=== PATIENT | female | born 1990 | race Caucasian/White ===

== ENCOUNTER 2022-08-11 12:10 | Inpatient (IN) ==
[2022-08-11] MEDS ORDERED: OXYTOCIN 30 UNITS/500 ML BAG IV PRN ×3 (14:55→20:32)
[2022-08-11] MEDS ORDERED: LIDOCAINE 1% LOCAL 20 ML VIAL INFIL PRN (14:55)
[2022-08-11 15:23] LABS: Hematocrit (blood only) 34.6 % (34.1-44.9); Hemoglobin 12.2 g/dl (12.0-16.0); Mean Corpuscular Hemoglobin 32.5 pg (25.0-34.0); Mean Corpuscular Hgb Conc 35.3 g/dL (32.0-36.0); Mean Corpuscular Volume 92.3 fL (80.0-100.0); Mean Platelet Volume 10.9 fL (9.4-12.3); Platelet Count 291 K/uL (130-400); RDW Coefficient of Variation 12.8 % (11.5-14.5); RDW Standard Deviation 43.3 fL (36.4-46.3); Red Blood Count 3.75 M/uL (3.93-5.22)
[2022-08-11] MEDS: LACTATED RINGER'S 1,000 ML IV PRN ×2 (15:37→17:40)
[2022-08-11] MEDS ORDERED: ePHEDrine sulfate 50 MG/ML AMP ONE (17:14)
[2022-08-11] MEDS ORDERED: fentaNYL 2MCG/ML ROPIVACAINE 1.25MG/ML 100 ML BAG EPI ONE (17:15)
[2022-08-11] MEDS ORDERED: LIDOCAINE 2%/EPINEPHRINE 1:200,000 20 ML SDV ONE (17:15)
[2022-08-11] MEDS ORDERED: BUPIVACAINE 0.25% 30 ML VIAL ONE (17:15)
[2022-08-11] MEDS ORDERED: fentaNYL citrate 100 MCG/2 ML VIAL ONE (17:15)
[2022-08-11] MEDS ORDERED: SODIUM CHLORIDE 0.9% INJ 10 ML VIAL ONE (17:15)
[2022-08-11] MEDS ORDERED: NALOXONE HCL 1 MG in SODIUM CHLORIDE 0.9% 1000ML 1,000 ML IV PRN (18:15)
[2022-08-11] MEDS ORDERED: fentaNYL 2MCG/ML ROPIVACAINE 1.25MG/ML 100 ML BAG EPI PRN (18:15)
[2022-08-11] MEDS ORDERED: NALOXONE HCL 0.4 MG/1 ML VIAL/CARP IV PRN (18:15)
[2022-08-11] MEDS ORDERED: NALBUPHINE HCL INJ 10 MG/ML AMP IV PRN (18:15)
[2022-08-11] MEDS ORDERED: ePHEDrine sulfate 50 MG/ML AMP IV PRN (18:15)
[2022-08-11] MEDS ORDERED: diphenhydrAMINE 50 MG/ML VIAL IV PRN (18:15)
[2022-08-11] MEDS ORDERED: ONDANSETRON INJ 2 MG/ML 2 ML VIAL IV PRN (18:15)
--- NOTE | 2022-08-11 18:15 | Anesthesiology Consultation ---
Date of Service August 11, 2022 Assessment & Plan Chart Review Chart Review: Patient NOT seen in Pre Admission Testing and Acceptable Risk for Labor Epidural Consults Requested none ASA ASA2 Proposed Anesthesia Anesthesia Type: Labor Epidural Risk / Benefits Reviewed With: PT / POA / Parent / Guardian, Accepts Plan and Informed Consent Obtained History Height/Weight Height: 5 ft 3 in Weight: 89.358 kg Allergies Allergy/AdvReac Type Severity Reaction Status Date / Time cefaclor [From [facility]] Allergy Verified 08/08/22 13:26 Medications Home Medications Medication Instructions Recorded Confirmed Last Taken cetirizine 10 mg tablet (Zyrtec) 10 mg PO DAILY PRN Allergic 12/26/20 08/11/22 08/11/22 Symptoms [id number] See Rx Instructions .Route .COMPLEX 06/03/22 08/11/22 08/11/22 Active Medications Generic Name Dose Route Start Last Admin Trade Name Freq PRN Reason Stop Dose Admin Lactated Ringer's 1,000 mls @ 125 mls/hr 08/11/22 14:55 08/11/22 18:03 Lr IV 08/13/22 14:54 125 mls/hr .Q8H PRN Infusion L&D Protocol Protocol Oxytocin 30 units in 500 mls @ 5 mls/hr 08/11/22 14:55 08/11/22 17:00 Pitocin IV 08/13/22 14:54 0.3 units/hr .Q24H PRN 5 mls/hr Labor Induction/Augmentation Titration Protocol 0.3 UNITS/HR Past Medical History Medical History (Updated 06/03/22 @ 12:58 by Norbert Bass MD) Angioedema "unexplained face swelling" x1 episode, no explanation as yet History of chicken pox 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 - second opinion disagreed, symptoms resolved Status post therapeutic Exercise / Class Metabolic Activity II 4-5 Yardwork/Stairs/Walk up hill Past Family History Family History Father Prostate cancer Grandfather (Paternal) Prostate cancer Grandmother (Maternal) Hypertension Clotting disorder Family/Other Ankylosing spondylitis Denies family history of Ovarian cancer Myocardial infarction Breast cancer Lung cancer Colorectal cancer Past Surgical History Surgical History [place] teeth removed Past Anesthesia History No Hx of Anesthesia Complications and No Family Hx of Anesthesia Complications History of PONV No Hx of PONV and No Hx of Motion Sickness Social History Smoking Status: Never smoker Hx Alcohol Use: No Hx Substance Use: No substance use type: does not use Physical Exam Vital Signs Last Vital Signs Temp 36.7 C 08/11/22 13:52 Pulse 76 08/11/22 18:13 Resp 20 08/11/22 16:21 BP 149/88 H 08/11/22 18:13 Pulse Ox 100 08/11/22 18:13 ENMT Mouth: no dentition abnormality Thyromental Distance: > or= 3.5 Finger Breadths Mallampati Class: II Neck normal visual inspection Respiratory normal respiratory effort Auscultation: lungs clear to auscultation bilaterally Cardiovascular Rate/Rhythm: regular rate and regular rhythm Psychiatric Orientation: alert Testing Laboratory Results 08/11/22 15:02
[2022-08-11] MEDS ORDERED: METHYLERGONOVINE MALEATE 0.2 MG/ML AMP ONE (19:46)
[2022-08-11] MEDS ORDERED: miSOPROStoL 200 MCG TAB ONE (19:46)
[2022-08-11] MEDS ORDERED: bisacodyL 10 MG SUPP PR PRN (20:32)
[2022-08-11] MEDS ORDERED: HYDROCORTISONE ACETATE 25 MG SUPP PR PRN (20:32)
[2022-08-11] MEDS ORDERED: miSOPROStoL 200 MCG TAB PR ONE (20:32)
[2022-08-11] MEDS ORDERED: BENZOCAINE 20% AER SPR 82.5 GM CAN EXT PRN (20:32)
[2022-08-11] MEDS ORDERED: DIPHTHERIA/TETANUS/PERTUSSIS 0.5 ML SYR/VIAL IM ONE (20:32)
[2022-08-11] MEDS: IBUPROFEN 600 MG TAB PO PRN (21:12)
[2022-08-11] MEDS: DOCUSATE SODIUM 100 MG CAP PO SCH (21:12)
--- NOTE | 2022-08-11 21:20 | Anesthesia Procedure Note ---
Date of Service August 11, 2022 Anesthesia Post Epidural Note Vital Signs Vital Signs: Temp Pulse Resp BP Pulse Ox 36.5 C 68 20 133/82 93 08/11/22 19:15 08/11/22 21:04 08/11/22 21:05 08/11/22 21:04 08/11/22 19:37 Pain Intensity Bilateral Abdomen: Pain Intensity: 3 Notes Mental Status: alert / awake / arousable Nausea / Vomiting: adequately controlled Pain: adequately controlled Airway Patency, RR, SpO2: stable & adequate BP & HR: stable & adequate Hydration State: stable & adequate Neuraxial Anesthesia: was administered and sensory block is resolving Anesthetic Complications: no major complications apparent and Pt Satisfied with anesthetic care Epidural: Removed without complications and With tip intact
--- NOTE | 2022-08-11 21:36 | Delivery Summary ---
PROCEDURE: Normal spontaneous vaginal delivery with second-degree perineal laceration repair. SURGEON: Norbert Bass MD. PREOPERATIVE DIAGNOSES: 1. Single intrauterine at 41 weeks and 1 day gestational age. 2. Postdates induction of labor. POSTOPERATIVE DIAGNOSES: 1. Single intrauterine at 41 weeks and 1 day gestational age. 2. Postdates induction of labor. 3. Status post procedure. ESTIMATED BLOOD LOSS: 400 mL. DRAINS: Straight cath at the completion of the case. URINE OUTPUT: Per straight cath. COMPLICATIONS: None. FINDINGS: Viable female with weight and Apgars pending. The patient was noted to have a Bar tholin's gland cyst at the time of repair. The cyst did have to be decompressed to allow for repair of the second-degree perineal laceration. DESCRIPTION OF THE PROCEDURE: The patient progressed to 10 cm dilated, 100% effaced, positive 2-3 st ation, pushed over intact perineum with epidural anesthesia and delivered a viable female infant with weight and Apgars pending. Head of the delivered in YANELY position, restituted right transver se. There was noted to be a posterior compound hand, which was delivered, remaining body and shoulde rs quickly followed. was noted to be vigorous soon after delivery and a 1 minute delayed cor d clamping was initiated. Cord was then double clamped and cut. remained on maternal abdome n. Cord blood was obtained. Attention was then turned to delivery of the placenta, which was delive red intact, 3-vessel cord, gentle cord traction. On inspection of the perineum, vagina, cervix, ther e was noted to be a second-degree perineal laceration as well as a left-sided Bartholin gland cyst ap proximately 1.5 cm to 2 cm in size. The patient was unaware of the Bartholin gland cyst prior to the procedure. The patient was noted to have moderately heavy bleeding and uterine massage was continue d and the patient was straight cathed. Bleeding did improve and the second-degree perineal laceratio n was repaired with traditional crown stitch after decompression of the Bartholin gland cyst to allow for repair of the second-degree. After the second-degree was repaired, the Bartholin gland cyst was noted to be decompressed and was not overly noticeable. The 800 mcg of Cytotec were placed per rectum due to the couple episodes of bleeding following delivery. Both mother and were stable in t he immediate post-delivery period. Job ID: [id number]
[2022-08-11] MEDS: ACETAMINOPHEN 325 MG TAB PO PRN (23:47)
[2022-08-12] MEDS: IBUPROFEN 600 MG TAB PO PRN ×5 (01:20→21:34)
--- NOTE | 2022-08-12 07:03 | Obstetrical Progress Note ---
Date of Service <Regina Mora MD - Last Filed: 08/12/22 08:14> August 12, 2022 Assessment & Plan <Regina Mora MD - Last Filed: 08/12/22 08:14> (1) care following vaginal delivery: 32 y/o at 40+ presented for IOL now PPD1. GBS neg. Rubella immune. A+. Satisfactory progress. Encourage ambulation. Tolerating PO. <Norbert Bass MD - Last Filed: 08/13/22 08:45> (1) care following vaginal delivery: Subjective <Regina Mora MD - Last Filed: 08/12/22 08:14> Ambulation: ambulating normally Voiding: no voiding problems Passing Gas:: Yes Diet Tolerance:: regular diet Lochia:: Small Feeding Type:: breast feeding no f/c/CP/SOB/calf pain Physical Exam <Regina Mora MD - Last Filed: 08/12/22 08:14> Constitutional WD/WN, vitals as above Respiratory normal respiratory effort, lungs clear to auscultation Cardiovascular RRR, no murmur, no edema Extremities: no calf tenderness Psychiatric A+Ox3, euthymic affect Genitourinary OB Exam Abdomen: + fundal height (at the level of the umbilicus) Fundus: + firm Results & Data ([facility]) <Regina Mora MD - Last Filed: 08/12/22 08:14> Vital Signs (Past 12 Hours) Vital Signs Temp Pulse Pulse Resp BP BP Pulse Ox 08/12/22 03:00 36.8 C 72 18 144/94 H 99 08/11/22 22:30 36.9 C 75 18 126/85 98 08/11/22 21:35 88 18 140/71 08/11/22 21:05 20 08/11/22 20:35 20 08/11/22 19:15 36.5 C 08/11/22 20:20 18 08/11/22 20:05 18 08/11/22 19:50 20 08/11/22 19:35 20 08/11/22 21:34 88 140/71 08/11/22 21:19 90 123/73 08/11/22 21:04 68 133/82 08/11/22 20:49 73 146/75 H 08/11/22 20:35 79 132/74 08/11/22 20:19 63 142/67 H 08/11/22 20:04 75 121/76 08/11/22 19:52 88 150/76 H 08/11/22 19:37 89 93 08/11/22 19:34 69 129/77 08/11/22 19:33 75 100 08/11/22 19:28 80 100 08/11/22 19:23 89 100 08/11/22 19:22 78 135/79 08/11/22 19:18 78 100 08/11/22 19:13 101 H 100 08/11/22 19:08 156 H 100 08/11/22 19:07 76 145/81 H 08/11/22 19:03 99 H 100 O2 Del Method 08/12/22 03:00 Room Air 08/11/22 22:30 Room Air 08/11/22 21:35 08/11/22 21:05 08/11/22 20:35 08/11/22 19:15 08/11/22 20:20 08/11/22 20:05 08/11/22 19:50 08/11/22 19:35 08/11/22 21:34 08/11/22 21:19 08/11/22 21:04 08/11/22 20:49 08/11/22 20:35 08/11/22 20:19 08/11/22 20:04 08/11/22 19:52 08/11/22 19:37 08/11/22 19:34 08/11/22 19:33 08/11/22 19:28 08/11/22 19:23 08/11/22 19:22 08/11/22 19:18 08/11/22 19:13 08/11/22 19:08 08/11/22 19:07 08/11/22 19:03 <Norbert Bass MD - Last Filed: 08/13/22 08:45> Co-Signing Physician Notes patient seen and evaluated with resident and agree with the above findings and plan. Routine care Resident Activity Tracking <Regina Mora MD - Last Filed: 08/12/22 08:14> Resident Involvement: Resident Care Provided Care Provided: OB Delivery
[2022-08-12 07:06] LABS: Hematocrit (blood only) 31.7 % (34.1-44.9); Hemoglobin 11.1 g/dl (12.0-16.0)
[2022-08-12] MEDS: FERROUS SULFATE 325 MG TAB PO SCH (07:52)
[2022-08-12] MEDS: DOCUSATE SODIUM 100 MG CAP PO SCH ×2 (07:52→19:34)
[2022-08-12] MEDS: CETIRIZINE HCL 10 MG TABLET PO SCH (07:52)
[2022-08-12] MEDS: PRENATAL VITAMIN 1 TAB PO SCH (07:52)
[2022-08-12] MEDS: ACETAMINOPHEN 325 MG TAB PO PRN ×3 (07:52→19:34)
[2022-08-12] MEDS ORDERED: bisacodyL 5 MG TABEC PO SCH (20:00)
[2022-08-13] MEDS: IBUPROFEN 600 MG TAB PO PRN ×3 (01:44→11:31)
[2022-08-13] MEDS: ACETAMINOPHEN 325 MG TAB PO PRN ×2 (01:45→07:46)
--- NOTE | 2022-08-13 06:05 | Obstetrical Progress Note ---
Date of Service <Regina Mora MD - Last Filed: 08/13/22 07:33> August 13, 2022 Assessment & Plan <Regina Mora MD - Last Filed: 08/13/22 07:33> (1) care following vaginal delivery: 32 y/o at 40+ presented for IOL now PPD2. GBS neg. Rubella immune. A+. Satisfactory progress. Encourage ambulation. Tolerating PO. Cleared for d/c from an OB perspective - f/u in office in 6 weeks. <Claudia Smith MD, FACOG - Last Filed: 08/13/22 07:51> (1) care following vaginal delivery: Subjective <Regina Mora MD - Last Filed: 08/13/22 07:33> Ambulation: ambulating normally Voiding: no voiding problems Passing Gas:: Yes Diet Tolerance:: regular diet Lochia:: Small Feeding Type:: breast feeding no f/c/SOB/CP/calf pain Physical Exam <Regina Mora MD - Last Filed: 08/13/22 07:33> Constitutional WD/WN, vitals as above Respiratory normal respiratory effort, lungs clear to auscultation Cardiovascular RRR, no murmur, no edema Extremities: no calf tenderness Psychiatric A+Ox3, euthymic affect Genitourinary OB Exam Abdomen: + fundal height (at the level of the umbilicus) Fundus: + firm Results & Data ([facility]) <Regina Mora MD - Last Filed: 08/13/22 07:33> Vital Signs (Past 12 Hours) Vital Signs Temp Pulse Resp BP Pulse Ox O2 Del Method 08/12/22 23:38 36.7 C 74 16 117/73 96 Room Air 08/12/22 19:30 36.6 C 65 18 120/79 98 Room Air <Claudia Smith MD, FACOG - Last Filed: 08/13/22 07:51> Co-Signing Physician Notes Resident Physician Supervision Note: I interviewed and examined the patient. Discussed with Dr. Mora and agree with findings and plan as documented in the note. Any exceptions or clarifications are listed here: Doing well. Instructions given. Plan d/c. Documented By: Claudia Smith MD, FACOG Resident Activity Tracking <Regina Mora MD - Last Filed: 08/13/22 07:33> Resident Involvement: Resident Care Provided Care Provided: OB Delivery
[2022-08-13] MEDS: PRENATAL VITAMIN 1 TAB PO SCH (07:47)
[2022-08-13] MEDS: DOCUSATE SODIUM 100 MG CAP PO SCH (07:47)
[2022-08-13] MEDS: CETIRIZINE HCL 10 MG TABLET PO SCH (07:47)
[2022-08-13] MEDS: FERROUS SULFATE 325 MG TAB PO SCH (07:47)
== END 2022-08-13 11:36 | disposition home or self-care (01) | DRG 807 ==
LOC: 4S1 13:31 → 4E2 22:31